=== PATIENT | female | born 1990 | race Caucasian/White ===

== ENCOUNTER 2024-06-03 14:29 | Emergency (ER) | payer OTHER ==
[~2024-06-03] VITALS: Ht 165.1 cm; Wt 67.6 kg
[2024-06-03 15:20] LABS: BASOPHILS 1.2 % (0-2); EOSINOPHILS 0.7 % (0-6); HEMATOCRIT 42.3 % (35.0-50.0); HEMOGLOBIN 14.2 g/dL (12.0-18.0); LYMPHOCYTES 16.7 % (24-44); MCHC 33.5 g/dl (30-36); MCV 89.4 fl (81-99); MONOCYTES 11.7 % (0-12); NEUTROPHILS 69.7 % (39-80); PLATELET COUNT 265 K/uL (140-440); RBC 4.73 M/ul (4.3-5.7)
[2024-06-03 15:24] LABS: BILIRUBIN, URINE NEGATIVE (negative); BLOOD/HGB, URINE NEGATIVE (Negative); KETONE, URINE NEGATIVE (Negative); LEUK ESTERASE, URINE NEGATIVE (negative); NITRITE, URINE NEGATIVE (negative)
[2024-06-03] MEDS ORDERED: HYDROCODON-ACE1 EA10 (15:34)
[2024-06-03] MEDS ORDERED: TRAMADOL HCL50 MG PO (15:34)
[2024-06-03] MEDS ORDERED: LAMOTRIGINE100 MG PO (15:34)
[2024-06-03 15:37] LABS: ACETAMINOPHEN 0 ug/mL (10-30); ALBUMIN 4.4 g/dL (3.4-5.0); ALBUMIN/GLOBULIN RATIO 1.05 (1.1-2.4); ALCOHOL, MEDICAL <3 ng/dL (<3); ALKALINE PHOSPHATASE 59 U/L (46-116); ALT (SGPT) 17 U/L (14-59); AST (SGOT) 8 U/L (15-37); BILIRUBIN, TOTAL 0.5 ng/dL (0.2-1.0); BUN/CREATININE RATIO 6.25 (6.0-28.6); CALCIUM 9.4 mg/dL (8.5-10.1); CARBON DIOXIDE 27 mmol/L (21-32); CHLORIDE 104 mmol/L (98-107); GLOMERULAR FILTRATION RATE,EST 100 mL/min (>60); PROTEIN, TOTAL 8.6 g/dL (6.4-8.2); SALICYLATE 0.7 mg/dL (2.8-20.0); TSH, 3RD GENERATION 0.329 uIU/mL (0.358-3.740); UREA NITROGEN 5 mg/dL (7-18)
[2024-06-03 15:45] LABS: AMPHETAMINES, URINE NEGATIVE (NEGATIVE); BARBITURATES, URINE NEGATIVE (NEGATIVE); BENZODIAZEPINE, URINE NEGATIVE (NEGATIVE); BUPRENORPHINE, URINE NEGATIVE (NEGATIVE); CANNABINOID, URINE POSITIVE (NEGATIVE); COCAINE, URINE NEGATIVE (NEGATIVE); ECSTASY, URINE NEGATIVE (NEGATIVE); FENTANYL, URINE NEGATIVE (NEGATIVE); METHADONE, URINE NEGATIVE (NEGATIVE); OPIATES, URINE NEGATIVE (NEGATIVE); OXYCODONE, URINE NEGATIVE (NEGATIVE); PHENCYCLIDINE, URINE NEGATIVE (NEGATIVE)
[2024-06-03] MEDS ORDERED: OLANZapine 10 MG TABDIS PO ONE (17:00)
[2024-06-03 17:35] LABS: INFLUENZA B NAA NEGATIVE (NEGATIVE); RESPIRATORY SYNCYTIAL VIR NAA NEGATIVE (NEGATIVE)
[2024-06-04 09:44] VITALS: BP 109/55
--- NOTE | 2024-06-04 11:52 | EKG ---
[facility] [address] [facility] [place], [place] [address] Signed Sinus bradycardia Otherwise normal ECG No previous ECGs available Confirmed by Hilario Dotson DO ([id number]) on 06/04/2024 11:52:46 AM Electronically Signed By: HILARIO DOTSON DO 06/04/24 1152 PATIENT NAME: HEVER ORTIZ Electrocardiogram DATE OF : [birth year] PHYSICIAN: HILARIO DOTSON DO REPORT #: [id number] REPORT IS CONFIDENTIAL AND NOT TO BE RELEASED WITHOUT AUTHORIZATION
== END 2024-06-04 09:44 ==
LOC: ED 14:29
PROVIDERS: Emergency Medicine
DX: R45.851 Suicidal ideations (principal); Z00.8 Encounter for other general examination; Z91.018 Allergy to other foods; Z79.899 Other long term (current) drug therapy
CPT/HCPCS: 36415; 80053; 80307; 81003; 84443; 84703; 85025; 87502; 93005; 93010; 99285; A9270; G0480; U0002